=== PATIENT | female | born 1955 | race Caucasian/White ===

== ENCOUNTER 2025-07-09 22:44 | Emergency (ER) | payer OTHER, SELFPAY ==
--- NOTE | 2025-07-09 00:22 | DI.CT_ITS ---
Exam(s) CT HEAD CERVICAL SPINE WO EXAM: CT HEAD CERVICAL SPINE WO CLINICAL HISTORY: fall, head strike. TECHNIQUE: Imaging Protocol: Axial computed tomography images with coronal and sagittal reformatted images were created and reviewed COMPARISON: No exams were available for comparison FINDINGS: Head CT Ventricles and Extra axial spaces: Normal in size and morphology for the patient's age. Hemorrhage: None. Cerebral parenchyma: No evidence of mass or acute infarct. Midline shift: None. Brainstem/Cerebellum: Normal. Calvarium: Normal. Visualized Paranasal sinuses/Mastoids: Clear. Soft tissues: Unremarkable. Cervical Spine CT BONES: Vertebral body heights are maintained. Alignment is normal. There is no evidence of acute fracture. Degenerative disc changes and facet degenerative changes are seen. There is severe right neural foraminal narrowing at C3-4. SOFT TISSUES: No paraspinal hematoma. The airway appears intact. No pneumothorax is seen at the lung apices. IMPRESSION: Head CT: No acute abnormality. C-spine CT: Degenerative changes, no acute abnormality. RADIATION DOSE DELIVERED: Total DLP DATA REPOSITORY: All CT scans at this facility are submitted to the National Radiology Data Registry (NRDR) Dose Index Registry (DIR) with the [employer] (ACR). RADIATION OPTIMIZATION: All CT scans at this facility use at least one of these dose optimization techniques: automated exposure control; mA and/or kV adjustment per patient size (includes targeted exams where dose is matched to clinical indication); or iterative reconstruction.
--- NOTE | 2025-07-09 00:23 | DI.RAD_ITS ---
Exam(s) XR CLAVICLE RT XR SHOULDER RT COMPLETE 2+V EXAM: XR SHOULDER RT COMPLETE 2+V CLINICAL HISTORY: fall, R shoulder deformity. TECHNIQUE: 2D digital imaging was performed. Five views. COMPARISON: CR,XR XR CLAVICLE RT from 07/10/2025 CR,XR XR SHOULDER RT 1V from 07/10/2025 FINDINGS: BONES: Fracture extending mainly transversely through the surgical neck of the humerus. Comminuted fragment noted posteriorly. Mild separation. No significant angulation. No clavicle fracture. No bony destructive lesion is seen. JOINTS: No dislocation present. The glenohumeral joint space is maintained. There is mild periarticular spurring. The AC joint shows mild spurring. No AC joint widening. SOFT TISSUE: Normal. IMPRESSION: Comminuted fracture of the humeral head. No clavicle fracture. The preliminary [facility] report was reviewed. DATA REPOSITORY: RADIATION DOSE DELIVERED:
[2025-07-09 22:52] VITALS: BP 190/82; PULSE 75; RESP 16; TEMP 36.9; O2SAT 95
--- NOTE | 2025-07-09 23:00 | W.ED.GENAD ---
Discharge Plan Disposition Patient Disposition: Home Condition: Good Discharge Details Clinical Impression: Fracture of proximal end of humerus Primary Care Provider: Zeny,Local ED Provider: Day Glez Home Meds and New Rx's Prescriptions: New oxycodone 5 mg tablet 5 - 10 mg PO Q6H PRNQty: 20 0RF Discharge Instructions Instructions: Upper Arm Fracture ED Additional Instructions: -Tylenol and ibuprofen over the counter for pain; follow the directions on the bottle. -Oxycodone 5-10mg up to every 6 hours as needed for uncontrolled pain. -Wear the sling 24 hours a day. Take your arm out of the sling briefly 2-3 times a day to flex and straighten your arm for 2-3 minutes to prevent your elbow from locking into place. -You can hold objects up to 2-3lbs in weight with your right arm. -Take a baby aspirin (81mg) twice a day. -You will need to followup with orthopedics. Call the orthopedic doctor of your choice near you to schedule an appointment to followup within the next two weeks. If your pain is not well controlled, you will need to be seen sooner. -Return to the emergency department if you develop new or worsening symptoms including uncontrolled pain, numbness or tingling in your arm, or if you have any other concerns. -Call your primary care doctor in the morning tos chedule an ppointment to followup on your visit here. At that visit please discuss pain control for your broken arm. Please also discuss your liver enzymes which are high here today, and your CT scan which shows fatty liver and a small left sided pelvic cyst (they may wish to get an US to get a better look at the cyst and determine what it is). HPI General Mode of arrival: ambulatory. Date/Time Provider Initiated Documentation: 07/09/25 22:45. Limitations to Documentation: no limitations. Information obtained by: patient. HPI Narrative: 69yo healthy female (history of 'elevated ferritin' for which she receives regular phlebotomy) presenting with right shoulder pain after a fall. Was stepping up to the first step up to her camp, misjudged the step, and fell forward landing on her right side and striking her face. No LOC. Not on AC. Has severe pain in her right shoulder, denies pain elsewhere. No numbness, tingling, or weakness to her right arm. No ROGERS, N/V, numbness, tingling, weakness, vertgio, vision changes. No chest pain or shortness of breath. She was in her usual state of health prior to this event. Related Data Home Medications ?Medication ?Instructions ?Recorded ?Confirmed oxycodone 5 mg tablet 5 - 10 mg (1 - 2 x 5 mg) PO Q6H 07/10/25 PRN #20 tabs Previous Rx's ?Medication ?Instructions ?Recorded oxycodone 5 mg tablet 5 - 10 mg (1 - 2 x 5 mg) PO Q6H 07/10/25 PRN #20 tabs Allergies Allergy/AdvReac Type Severity Reaction Status Date / Time codeine Allergy Intermediate Nausea Verified 07/09/25 23:00 General Stated Complaint: Orthopedic KYRIE: 4 Review of Systems Narrative: see HPI Exam Narrative Exam Narrative: GENERAL: Alert, well appearing, well nourished SKIN: Warm and well perfused. HEAD: Echymosis to mid forehead, abrasion to right forehead. No significant swelling. Facial bones without deformities or tenderness. EYES: PERRL. No scleral icterus or conjunctival injection. EARS: No hemotympanum. NOSE: No discharge, tenderness, laxity. No nasal septal hematoma. MOUTH: No malocclusion or trismus. NECK: : Trachea midline, ?Neck supple. No midline cervical tenderness. Full pain free ROM. CV: Regular rate and rhythm, Normal s1 and s2. No murmurs, rubs, or gallops. PV: Radial pulses 2+ bilaterally and symmetric. Dorsalis pedis pulses 2+ bilaterally and symmetric. 2+ capillary refill. No extremity edema. CHEST: Chest symmetric with respirations. No chest wall tenderness. Lungs are clear to auscultation bilaterally. ABDOMEN: No ecchymosis or abrasions. Soft, nondistended, nontender. No RUQ tenderness. Negative murphys's. BACK: No abrasions, skin openings, or ecchymosis. Spine without bony tenderness, no step offs. PELVIC: Pelvis stable, nontender to lateral compression MSK: Right shoulder deformity. Right humeral head TTP. No bony tenderness and clavicle, elbow, or wrist. Pain with ROM at shoulder; pain in shoulder with ROM at elbow. Compartments soft. Otherwise tolerates full range of motion of extremities without tenderness. NEURO: ? GCS 15.? PERRL.? EOMI.? Fluent speech, no dysarthria. Motor- Right shoulder/elbow/wrist not tested 2/t pain. Otherwise 5/5 strength bilateral upper and lower extremities Sensation- ?Intact to light touch and symmetric multiple dermatomes including upper and lower extremities Coordination- No dysmetria on finger to nose with left; right not tested. Gait/station: ?Normal stance.? No truncal ataxia. Steady gait with equal normal steps CRANIAL NERVES: II: Pupils equal and reactive, III, IV, : EOM intact, no gaze preference or deviation, no nystagmus. V: normal sensation in V1, V2, and V3 segments bilaterally VII: no asymmetry, no nasolabial fold flattening VIII: normal hearing to speech IX, X: normal palatal elevation, no uvular deviation XI: NT XII: midline tongue protrusion Course Vital Signs Vital signs: Vital Signs Temperature 36.9 C 07/09/25 22:52 Pulse 75 07/09/25 22:52 Respiratory Rate 16 07/09/25 22:52 Blood Pressure 190/82 H 07/09/25 22:52 Pulse Oximetry 95 07/09/25 22:52 Temperature 36.9 C 07/09/25 22:52 Temperature Source Oral 07/09/25 22:52 Pulse 75 07/09/25 22:52 Respiratory Rate 16 07/09/25 22:52 Blood Pressure 190/82 H 07/09/25 22:52 Pulse Oximetry 95 07/09/25 22:52 Pain Level 7 07/09/25 22:52 Medical Decision Making 69yo healthy female (history of 'elevated ferritin' for which she receives regular phlebotomy) presenting with right shoulder pain after a fall. Was stepping up to the first step up to her camp, misjudged the step, and fell forward landing on her right side and striking her face. Hypertensive on arrival suspect 2/t pain, vital signs otherwise reassuring. Right shoulder tenderness and deformity and some echymosis to forehead/abrasion to right face; no other traumatic findings. Neurovascular intact on exam; no indication for CT imaging at this time. Will give tylenol & morphine for pain (zofran for nausea ppx) while awaiting results of workup. On reassessment still wtih good amount of pain; will add toradol and fentanyl. -Labs reviewed as below, CBC with mild thrombocytopenia (127), CMP with no actionable abnormalities, slightly elevated AST/ALT/ALP. She reports that she has had 'something high' with her liver in the past due to her ferritin. I am not concerned for acute hepatic injury based on her exam and mechanism however without prior labs here to compare these elevations are concerning for possible blunt hepatic injury. Will get CT abd/pelvis to assess. -CT head and c spine independently reviewed; no ICH or displaced cervical fracture on my view, radiology reads with no acute findings. -Plain films (shoulder, clavicle) independently reviewed; proximal humerus fracture on my view, radiology reads with Comminuted proximal humeral fracture with what appears to be extension into the later and greater tuberosities there is perhaps mild impaction -CT abd pelvis independently reviewed; no free fluid or clear liver injury on my view, radiology read with IMPRESSION: 1. Probable at least mild hepatic steatosis. 2. Urinary bladder is distended, this can be seen in settings of cystitis/retention. Correlate clinically. 3. Probable small left adnexal cyst, recommend better characterization with pelvic ultrasound on a nonemergent basis Consulted [facility] [place] orthopedics Dr. Caraballo (no ortho on [facility] overnight tonight); requested axillary or velpeau view to confirm no significant displacement. This was done; alignment adequate. Dr. Caraballo reviewed film and advised Advised sling, out of sling for elbow ROM 2-3 times a day, 2-3lbs weight bering RUE, baby aspirin twice a day, and orthopedic followup within two weeks. On reassessment vital signs reassuring, remains neurovascular intact with soft compartments. Placed in sling and swathe and discharged home with short course of oxycodone.; discharge instructions and return precautions were reviewed with patient who verbalized understanding. All questions were answered and she is in full agreement with the plan. [facility] All Active Problems (Updated 07/10/25 @ 03:02 by Day Glez MD) Fracture of proximal end of humerus (Acute) Social History Smoking/Tobacco Use Status: Never Smoking risk assessment performed?: Yes Alcohol Intake: current Alcohol Intake frequency: a few times a month Substance use type: does not use Housing: house
[2025-07-09 23:03] VITALS: BP 181/76
[2025-07-09] MEDS: Ondansetron 4 MG/2 ML VIAL IVP (23:16)
[2025-07-09] MEDS: ACETAMINOPHEN 1,000 MG/100 ML BAG 400 MG IVPB (23:17)
[2025-07-09] MEDS: MORPHine 4 MG/ML SYR IVP (23:17)
[2025-07-09 23:56] LABS: Abs Immature Grans 0.05 10^3/uL (0.0-0.06); HCT 43.3 % (36.0-46.0); HGB 14.6 g/dL (11.2-15.7); Immature Grans % 0.6 %; MCH 31.3 pg (27.0-33.0); MCHC 33.7 % (32.0-36.0); MCV 93 fL (80-95); MPV 9.3 fL (8.0-11.0); Platelet Count 127 10^3/uL (130-400); RBC 4.67 10^6/uL (3.93-5.22); RDW 12.7 % (11.7-14.6); RDW-SD 43.3 fL; WBC 7.91 10^3/uL (4.4-10.8)
[2025-07-10 00:10] LABS: ALT 174 U/L (14-59); AST 123 U/L (15-37); Albumin 3.7 g/dL (3.4-5.0); Alkaline Phosphatase 126 U/L (46-116); Anion Gap 12.0 mmol/L (3-11); BUN 10 mg/dL (7-18); Bilirubin, Total 0.8 mg/dL (0.2-1.0); CO2 24.0 mmol/L (21.0-32.0); Calcium 8.8 mg/dL (8.5-10.1); Chloride 99 mmol/L (98-107); Estimated GFR 97.71 (mL/min/1.73m2); Glucose 137 mg/dL (74-106); Potassium 4.0 mmol/L (3.5-5.1); Sodium 135 mmol/L (136-145); Total Protein 7.1 g/dL (6.4-8.2)
[2025-07-10] MEDS: Ketorolac 15 MG/ML VIAL IVP (00:33)
[2025-07-10] MEDS: fentaNYL 100 MCG/2 ML VIAL 50 MCG IVP ×2 (00:39→03:03)
[2025-07-10 00:44] VITALS: BP 137/84; PULSE 88; RESP 16; O2SAT 94
--- NOTE | 2025-07-10 01:12 | DI.[facility]_ITS ---
PROCEDURE INFORMATION: Exam: CT Head Without Contrast Exam date and time: 07/09/2025 11:49 PM Age: 69 years old Clinical indication: Other: Fall, head strike TECHNIQUE: Imaging protocol: Computed tomography of the head without contrast. COMPARISON: No relevant prior studies available. FINDINGS: Brain: No acute intracranial hemorrhage, mass-effect, midline shift, or extra-axial collection is seen. The wyatt white matter differentiation appears preserved. Cerebral ventricles: The ventricular system and basilar cisterns appear appropriate in size and configuration. Paranasal sinuses: There is mild patchy mucoperiosteal thickening in the visualized paranasal sinuses. No air-fluid levels are seen. Mastoid air cells: The mastoid air cells appear well-aerated. Auditory system: The middle ear cavities appear clear. Bones: The bony calvarium appears intact. No depressed skull fracture is seen. Soft tissues: No significant scalp lesion is seen. IMPRESSION: No acute intracranial hemorrhage or depressed skull fracture. PROCEDURE INFORMATION: Exam: CT Cervical Spine Without Contrast Exam date and time: 07/09/2025 11:49 PM Age: 69 years old Clinical indication: Other: Fall, head strike TECHNIQUE: Imaging protocol: Computed tomography of the cervical spine without contrast. COMPARISON: No relevant prior studies available. FINDINGS: Bones/joints: No acute cervical fracture or malalignment is seen. C2-C3: Disc height preserved. Mild bilateral uncovertebral hypertrophy. No central canal narrowing or neural foraminal narrowing. C3-C4: Disc height preserved. Bilateral uncovertebral hypertrophy. Moderate facet arthrosis on the right. No central canal narrowing. Mild left-sided foraminal narrowing. Severe right-sided foraminal narrowing. C4-C5: Disc height preserved. Anterior osteophytes. Moderate facet arthrosis on the right. No central canal narrowing or significant left-sided foraminal narrowing. Mild right-sided foraminal narrowing. C5-C6: Disc height preserved. Anterior osteophytes. Posterior osteophytic ridging with bilateral uncovertebral hypertrophy. No central canal narrowing or significant foraminal narrowing. C6-C7: Disc height relatively preserved. Anterior osteophytes. Posterior osteophytic ridging with bilateral uncovertebral hypertrophy. No significant cervical stenosis. Mild bilateral foraminal narrowing. C7-T1: Disc height relatively preserved. Mild bilateral facet arthrosis. No central canal narrowing. No significant foraminal narrowing. Lungs: The lung apices appear clear. Soft tissues: Within the limits of the exam, no gross soft tissue fluid collection is seen in the neck. IMPRESSION: No acute cervical fracture or malalignment is seen. Dictated and Authenticated by: Kendall Travis MD. Orderin Newton Bernstein MD
--- NOTE | 2025-07-10 01:42 | DI.VRAD_ITS ---
PROCEDURE INFORMATION: Exam: XR Right Clavicle, Complete Exam date and time: 07/10/2025 12:03 AM Age: 69 years old Clinical indication: Other: Fall, right shoulder deformity TECHNIQUE: Imaging protocol: Radiologic exam of the right clavicle. Complete exam. Views: Any number of views. COMPARISON: No relevant prior studies available. FINDINGS: Bones/joints: Comminuted minimally displaced fracture of the proximal right humerus. [id number] arthrosis of the acromioclavicular and glenohumeral joints. Soft tissues: Normal. IMPRESSION: 1. Comminuted minimally displaced fracture of the right humerus. 2. Clavicle appears intact and does not appear to be dislocated. Dictated and Authenticated by: Andreas Hopkins MD. Orderin Newton Bernstein MD
[2025-07-10] MEDS: Omnipaque 350 MG/ML 100 ML BTL IJ (01:43)
[2025-07-10] MEDS: Normal Saline Flush 10 ML SYR IVP (01:43)
[2025-07-10] MEDS: Normal Saline - Diluent 50 ML VIAL IJ (01:43)
--- NOTE | 2025-07-10 01:43 | DI.VRAD_ITS ---
PROCEDURE INFORMATION: Exam: XR Right Shoulder Exam date and time: 07/10/2025 12:06 AM Age: 69 years old Clinical indication: Other: Fall, right shoulder deformity TECHNIQUE: Imaging protocol: Radiologic exam of the right shoulder. Views: 2 or more views. COMPARISON: CR XR CLAVICLE RT 07/10/2025 12:03 AM FINDINGS: Bones/joints: Arthrosis of the acromioclavicular and glenohumeral joints. Comminuted proximal humeral fracture with what appears to be extension into the later and greater tuberosities there is perhaps mild impaction. No significant medial and lateral displacement by these projections. Soft tissues: Normal. IMPRESSION: Proximal right humeral fracture as above. Dictated and Authenticated by: Andreas Hopkins MD. Orderin Newton Bernstein MD
--- NOTE | 2025-07-10 01:58 | DI.CT_ITS ---
Exam(s) CT ABDOMEN PELVIS W EXAM: CT ABDOMEN PELVIS W CLINICAL HISTORY: fall onto right side, elevated AST/ALT/ALP. TECHNIQUE: Imaging Protocol: Axial computed tomography images with coronal and sagittal reformatted images were created and reviewed CONTRAST MATERIAL: Intravenous: Omnipaque 350 Contrast volume:75 ml Oral: no COMPARISON: No exams were available for comparison FINDINGS: ABDOMEN and PELVIS: Lung Bases: No acute findings. Liver: Mild hepatic steatosis. No suspicious mass. Gallbladder and biliary tract: No radiodense calculus. No wall thickening or pericholecystic fluid. No biliary dilation. Pancreas: Normal density. No abnormal calcifications or inflammatory process. No evidence of mass. Spleen: Normal. Kidneys: Normal size, contour and axis. No radiodense stones. No obstructive uropathy. No suspicious masses seen. Adrenal glands: No masses seen. Vasculature: Abdominal aorta non-dilated. Soft tissues: Unremarkable. Bladder: Somewhat over distended. No gross wall thickening. No calculi.No focal mass. Bowel: No obstruction. No bowel wall thickening. Appendix normal.Diverticulosis. No evidence of diverticulitis. Peritoneal cavity: No ascites. No focal collection. No mesenteric inflammatory response. No free air. Bones: Unremarkable for age. Reproductive organs: There is abnormal thickening of the endometrial stripe, measuring 12 millimeters. There is a cyst of the left ovary measuring 2 cm Lymph nodes: No pathologically enlarged lymph nodes. IMPRESSION:: No acute abnormality in the abdomen or pelvis. Abnormal thickening of the endometrial stripe. Small left ovarian cyst. Pelvic ultrasound recommended for further evaluation. The preliminary [facility] report was reviewed. RADIATION DOSE DELIVERED: Total DLP DATA REPOSITORY: All CT scans at this facility are submitted to the National Radiology Data Registry (NRDR) Dose Index Registry (DIR) with the [employer] (ACR). RADIATION OPTIMIZATION: All CT scans at this facility use at least one of these dose optimization techniques: automated exposure control; mA and/or kV adjustment per patient size (includes targeted exams where dose is matched to clinical indication); or iterative reconstruction.
--- NOTE | 2025-07-10 02:06 | DI.[facility]AD_ITS ---
PROCEDURE INFORMATION: Exam: CT Abdomen And Pelvis With Contrast Exam date and time: 07/10/2025 1:36 AM Age: 69 years old Clinical indication: Other: Fall onto right side, elevated ast/alt/alp TECHNIQUE: Imaging protocol: Computed tomography of the abdomen and pelvis with contrast. Contrast material: OMNIPAQUE 350; Contrast volume: 75 ml; Contrast route: INTRAVENOUS (IV); COMPARISON: No relevant prior studies available. FINDINGS: Lungs: Lung bases are clear as visualized. Heart: Base of heart is unremarkable as visualized. Liver: At least mild diffuse hepatic steatosis. Gallbladder and biliary ducts: Normal. No calcified stones. No ductal dilation. Pancreas: Normal. No ductal dilation. Spleen: Normal. No splenomegaly. Adrenal glands: Normal. No mass. Kidneys and ureters: Normal. No hydronephrosis. Stomach and bowel: A few colonic diverticula are seen, no evidence of diverticulitis. Normal amount of stool is present. Appendix: No evidence of appendicitis. Intraperitoneal space: Unremarkable. No free air. No significant fluid collection. Vasculature: Mild atherosclerotic disease. Lymph nodes: Unremarkable. No enlarged lymph nodes. Urinary bladder: Urinary bladder appears distended. Reproductive: Possible small left adnexal cyst measuring 2.2 x 1.7 x 1.5 cm. Bones/joints: Diffuse degenerative change of the visualized osseous structures. Soft tissues: Unremarkable. IMPRESSION: 1. Probable at least mild hepatic steatosis. 2. Urinary bladder is distended, this can be seen in settings of cystitis/retention. Correlate clinically. 3. Probable small left adnexal cyst, recommend better characterization with pelvic ultrasound on a nonemergent basis. Dictated and Authenticated by: Andreas Hopkins MD. Orderin Newton Bernstein MD
--- NOTE | 2025-07-10 02:45 | DI.RAD_ITS ---
Exam(s) XR SHOULDER RT 1V EXAM: XR SHOULDER RT 1V CLINICAL HISTORY: fracture; VELPO or axillary view please. TECHNIQUE: 2D digital imaging was performed. Single axillary view COMPARISON: CR,XR XR SHOULDER RT COMPLETE 2+V from 07/10/2025 FINDINGS: BONES: The fracture through the humeral neck is again noted. The fracture is mainly transverse. There are few small comminuted fragments. No bony destructive lesion is seen. JOINTS: No dislocation present. The humeral head appears normally aligned. SOFT TISSUE: Normal. IMPRESSION: Comminuted fracture of the humeral neck. No evidence of dislocation. The preliminary [facility] report was reviewed. DATA REPOSITORY: RADIATION DOSE DELIVERED:
[2025-07-10 03:14] VITALS: BP 149/73; PULSE 77; RESP 16; O2SAT 93
--- NOTE | 2025-07-10 03:28 | DI.[facility]_ITS ---
PROCEDURE INFORMATION: Exam: XR Right Shoulder Exam date and time: 07/10/2025 3:13 AM Age: 69 years old Clinical indication: Other: Fracture TECHNIQUE: Imaging protocol: Radiologic exam of the right shoulder. Views: 1 view. COMPARISON: CR XR SHOULDER RT COMPLETE 2+V 07/10/2025 12:06 AM FINDINGS: Bones/joints: See Soft tissues finding. Soft tissues: A single axillary view of the right shoulder is submitted. A comminuted acute fracture through the right humeral neck is redemonstrated but better demonstrated by the comparison shoulder series. There is no associated dislocation. No gross focal soft tissue abnormality is seen. IMPRESSION: Single axillary view. Comminuted acute fracture through the right humeral neck redemonstrated. Dictated and Authenticated by: Kendall Travis MD. Orderin Newton Bernstein MD
[2025-07-10 03:50] VITALS: BP 136/61; PULSE 70; RESP 16; O2SAT 94
[2025-07-10] MEDS: oxyCODONE 10 MG TAB PO (03:50)
--- NOTE | 2025-07-10 12:26 | NUR.NOTE ---
Access chart to print the demographic sheet and to get the discharge diagnosis for [facility] billing requisition. Nursing Note:
== END 2025-07-10 03:50 | disposition home or self-care (01) ==
PROVIDERS: Emergency Provider Student in an Organized Health Care Education/Training Program
DX: S42.201A Unspecified fracture of upper end of right humerus, initial encounter for closed fracture (principal); W19.XXXA Unspecified fall, initial encounter
CPT/HCPCS: 99285; 99284; 36415; 96375; 96376; 80053; 96365; 70450; 72125; 73000; 73020; 73030; 74177; 85025; J0131; J1885; J2270; J2405; J3010; J3490